=== PATIENT | male | born 1980 | race Caucasian/White ===

== ENCOUNTER 2024-12-27 14:35 | Outpatient (AMB) | payer OTHER, SELFPAY ==
--- NOTE | 2024-12-27 14:45 | MHC.PC.OV ---
Vital Signs 12/27/24 15:12 Height 5 ft 6 in Weight 198 lb 4 oz BMI 32.0 BP 104/67 Blood Pressure Location Lt brachial Position Sitting Respiration 16 Pulse 71 Pulse Source Pulse Oximeter Temp 97.8 F Temp Source Oral Pulse Oximetry (%) 100 Oxygen Delivery Method Room Air Intake Visit Reasons: CPE Intake Note: patient here for new patient visit Medical Collections Required: No Allergies No Known Allergies Allergy (Verified 12/27/24 15:23) Medication List - Last Reconciled 12/27/24 by Carlito Medina CNP No Known Home Meds Tobacco use date assessed: 12/27/24 Dental Screening Dental Screen Date: 12/27/24 Did you have a dental visit in the last 12 months?: Yes Did you have a dental problem in the last 6 months where you did not have access to dental care?: No Was dental information given to patient?: Patient has dentist HPI HPI Comments History of Present Illness Details 44-year-old male presents to [facility]. He is not on prescription medication. Prior PCP? - Dr. Rene Hewitt Last office visit/CPE/labs - Over 10 years Acute issue(s) - None Past Medical History - Myopia, testicular torsion Surgical History - Ear tubes placement Family History - Dad: Cardiovascular disease, hyperlipidemia, lung cancer - Mom: Thyroid disorder - PGF: Alcohol abuse - MGM: Cardiovascular disease, diabetes Social History - Former smoker, smoked at least 1ppd x 16 years, quit about 10 years ago. Does not drink alcohol, h/o excessive alcohol drinking 15 years ago, Vapes cannabis daily and smoke a joint occasionally - Generally makes unhealthy dietary choices. Active but does not exercise. Generally sleep well Health maintenance - Last eye exam was 3-4 years ago. Referred to ophthalmology for an eye exam - Last dental visit was in 04/2024 - Last tetanus vaccine was more than 10 years ago; received Tdap vaccine today - Has not been vaccinated for the flu this season; declines vaccination Specialists - None PFSH Medical History (Updated 12/27/24 @ 15:44 by Carlito Medina CNP) Testicular torsion Surgical History (Updated 12/27/24 @ 15:18 by Rona Bullock MA) History of placement of ear tubes Family History (Updated 12/27/24 @ 15:17 by Rona Bullock MA) Paternal Grandfather Alcohol abuse Sister Alcohol abuse Cancer Father High cholesterol Cardiovascular disease Cancer Maternal Grandmother Diabetes Cardiovascular disease Mother Thyroid disorder Social History (Updated 12/27/24 @ 15:12 by Rona Bullock MA) Housing: House Patient Tobacco Use Status: Never used Tobacco e-Cigarette/Vaping Use: Never Used Second Hand Smoke Exposure: No Substance Use Type: Marijuana service: No Current occupational status: employed Current occupation: HVAC Current occupational exposures/hazards: No Cognitive needs: No Hearing needs: No Vision needs: Yes Questionnaire PHQ-9 Over the last 2 weeks, how often have you been bothered by any of the following problems? 1. Little interest or pleasure in doing things: not at all 2. Feeling down, depressed, or hopeless: not at all 3. Trouble falling or staying asleep, or sleeping too much: not at all 4. Feeling tired or having little energy: not at all 5. Poor appetite or overeating: not at all 6. Feeling bad about yourself - or that you are a failure or have let yourself or your family down: several days 7. Trouble concentrating on things, such as reading the newspaper or watching television: not at all 8. Moving or speaking so slowly that other people could have noticed. Or the opposite - being so fidgety or restless that you have been moving around a lot more than usual: not at all 9. Thoughts that you would be better off or of hurting yourself in some way: not at all Total score: 1 Depression Screening Interpretation: Negative Depression Screening Done: Yes 21037 - PHQ-9 Billing: Yes Source: Developed by Drs. Rene Castrejon, Mary Mckeon, Malvin Schafer and colleagues, with an educational justyn from [employer]. Thrive Questionnaire Date Thrive assessed: 12/27/24 I am a: Patient What is your living situation today?: I have a steady place to live Within the past 12 months, did the food you bought not last and you didn't have the money to get more?: Never true Within the past 12 months, did you worry whether your food would run out before you got money to buy more?: Never true Do you have trouble paying for medicines?: No Do you have trouble getting transportation to medical appointments?: No Do you have trouble paying your heating and electricity bill?: No Do you have trouble taking care of your child, family member or friend?: No Do you have trouble with day-to-day activities such as bathing, preparing meals, shopping, managing finances, etc.?: No Are you currently unemployed and looking for a job?: No Are you interested in more education?: Yes Please select the resources that you would like help with: None Currently or been in a relationship where the following occur: No concerns reported THRIVE Score: 0 AUDIT C Alcohol Use Questionnaire (AUDIT-C) 1. How often do you have a drink containing alcohol?: Never 3. How often do you have six or more drinks on one occasion?: Never Total Score: 0 Score Reviewed/Action Taken: Yes FABRICE-7 AMB Questionnaire FABRICE-7 Date FABRICE - 7 assessed: 12/27/24 Feeling nervous, anxious, or on edge: 1 = Several days Not being able to stop or control worryin = Not at all Worrying too much about different things: 1 = Several days Trouble relaxin = Not at all Being so restless that it is hard to sit still: 0 = Not at all Becoming easily annoyed or irritable: 1 = Several days Feeling afraid as if something awful might happen: 0 = Not at all Total FABRICE-7 score (0-4 normal; 5-9 mild; 10-14 moderate; 15-21 severe): 3 Source: Developed by Drs. Rene Castrejon, Mary Mckeon, Malvin Schafer and colleagues, with an educational justyn from [employer]. FABRICE-7 Assessment Billing FABRICE-7 Assessment Tool: FABRICE-7 Assessment 26700 Review of Systems Const Details: Denies chills, Denies fatigue, Denies fever(s), Denies headache(s) and Denies weakness HEENT Denies change in vision, Denies dizziness, Denies headache(s), Denies hearing loss, Denies nasal congestion, Denies sinus pain, Denies sinus pressure and Denies sore throat Card Denies chest pain, Denies lightheadedness, Denies dyspnea and Denies other (palpitations) Resp Denies cough, Denies dyspnea and Denies wheezing GI Denies abdominal pain, Denies melena, Denies hematochezia, Denies change in bowel habits, Denies dyspepsia and Denies nausea Denies hematuria and Denies dysuria Musc Denies abnormal gait, Denies myalgias, Denies arthralgias, Denies numbness and Denies tingling Skin/Breast Denies rash, Denies unusual bruising and Denies wounds Neuro Denies abnormal gait, Denies dizziness, Denies headache(s), Denies memory loss, Denies numbness, Denies Sensory deficit (Neuro), Denies tingling and Denies weakness Psych Denies anxiety, Denies depression and Denies memory loss Endo Denies cold intolerance, Denies fatigue, Denies heat intolerance, Denies polydipsia and Denies polyuria Yosef/Lymph Denies easy bleeding and Denies easy bruising Aller/Immun Denies wheezing Physical exam (Primary Care) Vital Signs: Last Vital Signs Temp 97.8 F 12/27/24 15:12 Pulse 71 12/27/24 15:12 Resp 16 12/27/24 15:12 BP 104/67 12/27/24 15:12 Pulse Ox 100 12/27/24 15:12 Oxygen Delivery Method Room Air 12/27/24 15:12 BMI result Body Mass Index 32.0 Tobacco/Smoking Status: Tobacco use Status Tobacco use date assessed 12/27/24 12/27/24 15:12 Patient Tobacco Use Status Never used Tobacco 12/27/24 15:12 e-Cigarette/Vaping Use Never Used 12/27/24 15:12 PHQ-9: PHQ-9 Score PHQ-9: Total score 1 12/27/24 15:49 Depression Screening Interpretation: Negative Thrive Assessment: Date of Thrive Assessment Date Thrive assessed 12/27/24 12/27/24 15:09 Currently or been in a relationship where the following occur: No concerns reported Const Other: General: no acute distress, well developed, alert and awake Nutritional Appearance: well nourished Orientation/consciousness: patient oriented x3 HENMT Head: Yes normocephalic and Yes atraumatic Ears: hearing grossly normal bilaterally and TM's normal bilaterally General nose exam: Normal external nose present and Normal nares present Mouth: Normal oral and palatal mucosa present and moist mucous membranes Teeth and gingiva: dentition normal Throat: Yes oropharynx normal Eyes Pupils: Equal, round and reactive pupils present and Pupil accommodation reflex normal EOM: EOMs intact bilaterally Neck Neck: Yes normal visual inspection, Yes no lymphadenopathy and Yes trachea midline Thyroid: Thyroid normal Carotids: no bruits Lymphatic: no lymphadenopathy noted Chest Chest palpation & inspection: normal inspection of the chest Resp Effort & Inspection: normal respiratory effort Auscultation: clear to auscultation bilaterally Cardio Rate: regular rate Rhythm: regular rhythm Heart sounds: S1 normal heart sound present, S2 normal heart sound present, no gallops, no murmurs and no rubs Bruits: no abdominal aortic bruits and no carotid bruits GI Palpation (GI): No Abdominal aortic bruit present, Soft to palpation, nontender, No hepatosplenomegaly present and No Rebound tenderness present Auscultation: normal bowel sounds General: Yes no CVA tenderness Back/Spine/Pelvis Back: no CVA tenderness Cervical Spine: cervical ROM normal and No Cervical spine tenderness Thoracic/Lumbar Spine: thoraco-lumbar ROM normal, No pain with thoraco-lumbar ROM, No thoracic spinal tenderness and No lumbar spinal tenderness Skin General: warm and dry. Normal skin color. Normal skin turgor Lesions: no lesions Rashes: no rashes Trauma: no lacerations or abrasions Wounds: no wounds Nails: normal Neuro General: patient oriented x3, gait normal and CN's II-XI intact bilaterally Cranial nerves: Yes Equal, round and reactive pupils present Cognition (Neuro): normal cognition Gait exam (Neuro): Normal gait present Motor exam (neuro): 5/5 motor strength present throughout Sensory Exam: No Sensory deficit (Neuro) Deep tendon reflexes (DTR's): Right patellar reflex intensity grade: 2+ and Left patellar reflex intensity grade: 2+ Extrem General: Yes normal to inspection, No edema and No calf tenderness Psych Appearance: grossly normal Affect: normal affect Attitude: cooperative Thought process: Normal thought process present Immunizations Boostrix Tdap 2.5 Lf unit-8 mcg-5 Lf/0.5 mL intramuscular syringe Performing Provider: Carlito Medina CNP [place] [facility] [place] [facility] Administered by: Renato Jose RN on 12/27/24 15:48 Dose Route Admin Location Dispensed Lot Number Expiration Date [facility] Systems Mgr 0.5 mL IM Left Deltoid 0.5 mL [id number] 01/20/27 [id number] [employer] Total Dispensed Waste 0.5 mL 0 % VIS Given Date VIS Provided VIS Publication Date 12/27/24 Single Vaccine 20 Eligibility Eligibility Date Funding Source Not [facility] Eligible 12/27/24 Private Coding Level of Care Code New Pt Level 3 (44149) New Pt Prev Care 18-39yr(40286 Diagnoses Normal physical examination, routine Z00.00 Eye exam, routine Z01.00 Engages in vaping Z72.89 Obesity (BMI 30-39.9) E66.9 Laboratory tests ordered as part of a complete physical exam (CPE) Z00.00 Additional Codes FABRICE-7 Assessment Billing - FABRICE-7 Assessment Tool: FABRICE-7 Assessment 47309 ([id number]) PHQ-9 - 20048 - PHQ-9 Billing: Yes ([id number]) Assessment & Plan Assessment & Plan (1) Normal physical examination, routine: Code(s): Z00.00 - Encounter for general adult medical examination without abnormal findings Category: Medical Plan: No significant functional limitation noted. Healthy diet and routine exercise encouraged. Perform lab work and follow-up for telehealth visit for labs review in 2-4 weeks. Return sooner with symptoms or concerns. Verbalized understanding and agreed with the plan. (2) Eye exam, routine: Code(s): Z01.00 - Encounter for examination of eyes and vision without abnormal findings Category: Medical Plan: Last eye exam was 3-4 years ago. Referred to ophthalmology for an eye exam. (3) Engages in vaping: Code(s): Z72.89 - Other problems related to lifestyle Category: Medical Plan: He vapes cannabis daily. Instructed on the health risks and complications of vaping and cessation encouraged. Verbalized understanding and agreed with the plan. (4) Obesity (BMI 30-39.9): Code(s): E66.9 - Obesity, unspecified Category: Medical Plan: He currently weighs 198 lb, BMI is 32.0. He generally makes unhealthy dietary choices. He is active and does not exercise. Declines referral to drill operator/dietitian or weight management clinic at this time and notes he will start making healthy lifestyle changes. Healthy diet and routine exercise encouraged. Follow-up as needed. Verbalized understanding and agreed with the plan. (5) Laboratory tests ordered as part of a complete physical exam (CPE): Code(s): Z00.00 - Encounter for general adult medical examination without abnormal findings Category: Medical Plan: Fasting labs ordered as part of a complete physical exam. Advised to fast for at least 10 hours before getting labs drawn. May drink water Verbalized understanding and agreed with treatment plan. Orders: Orders Complete Blood Count Auto Diff Today Z00.00 - Encounter for general adult medical examination without abnormal findings Lipid Panel Today Z00.00 - Encounter for general adult medical examination without abnormal findings PSA, Ultra Sensitive Today Z00.00 - Encounter for general adult medical examination without abnormal findings TSH reflex Free T4 Today Z00.00 - Encounter for general adult medical examination without abnormal findings Comprehensive [place]. Panel Fast Today Z00.00 - Encounter for general adult medical examination without abnormal findings Microalbumin, Random (w Creat) Today Z00.00 - Encounter for general adult medical examination without abnormal findings UA CC w/rflx Micro + Cult Today Z00.00 - Encounter for general adult medical examination without abnormal findings Vitamin D 25-OH Total Today Z00.00 - Encounter for general adult medical examination without abnormal findings TDaP Immunization Today Z23 - Encounter for immunization
[2024-12-27 15:12] VITALS: BP 104/67; PULSE 71; RESP 16; TEMP 36.6; O2SAT 100; BMI 32.0
--- OUTSIDE RECORDS SUMMARY | 2024-12-27 15:57 | XMS_ITS | Patient Health Record ---
Author Organization [facility] Address [address] [place] [id number] Care Team Providers Care Inflatable Buildings Laminator Name Role Phone Rene Johnston Unavailable [phone] Reason For Referral No Information Plan Of Treatment No Information
== END 2024-12-27 15:47 | disposition home or self-care (01) ==
LOC: HO.HMCFM 14:36
PROVIDERS: PCP Nurse Practitioner Family; Visit Provider Nurse Practitioner Family
DX: Z00.00 Encounter for general adult medical examination without abnormal findings (principal); E66.9 Obesity, unspecified; Z68.32 Body mass index [BMI] 32.0-32.9, adult; Z72.89 Other problems related to lifestyle; Z23 Encounter for immunization

== ENCOUNTER → 2024-12-27 14:35 | Outpatient (BNVA) | payer OTHER, SELFPAY | PROVIDERS: PCP Nurse Practitioner Family; Visit Provider Nurse Practitioner Family | DX: Z00.00 Encounter for general adult medical examination without abnormal findings (principal); E66.9 Obesity, unspecified; Z68.32 Body mass index [BMI] 32.0-32.9, adult; Z23 Encounter for immunization; Z72.89 Other problems related to lifestyle | CPT/HCPCS: 90471; 90715; 96127 ==

== ENCOUNTER 2024-12-28 10:57 | Outpatient (AMB) | payer OTHER, SELFPAY ==
[2024-12-28 11:22] VITALS: BP 102/78; PULSE 70; TEMP 36.8; O2SAT 97; BMI 32.0
--- NOTE | 2024-12-28 11:22 | MHC.OFFWIV ---
Intake Vital Signs 12/28/24 11:22 Height 5 ft 6 in Weight 198 lb BMI 32.0 BP 102/78 Blood Pressure Location Rt brachial Position Sitting Pulse 70 Pulse Source Pulse Oximeter Temp 98.3 F Temp Source Oral Pulse Oximetry (%) 97 Oxygen Delivery Method Room Air Intake Visit Reasons: EP-rt ear wax Intake Note: pt presents with RT ear wax buildup with loss of hearing Patient Tobacco Use Status: Never used Tobacco Allergies No Known Allergies Allergy (Verified 12/28/24 11:22) Do you need a note to return to daycare/school/sports/work: No HPI HPI Comments History of Present Illness Details History - The patient is a 44-year-old male presenting with hearing loss due to impacted cerumen in the right ear. - The issue began after attempting to clean ear wax at home following a primary care visit yesterday. - The patient used Q-tips and a metal ear cleaning kit, which led to irritation and minor bleeding. - The patient reports no pain but experiences awkwardness and difficulty hearing, affecting communication at work. - Debrox was used unsuccessfully to dissolve the wax, requiring professional intervention. Physical Exam General: Cooperative, healthy appearing, comfortable, no acute distress and well developed Orientation: Patient oriented x3 Limitations: No limitations Head: Normal to inspection Ears: Right ear with impacted cerumen and some blood present, left ear TM and EAC normal Face and sinus: Normal facial exam Neck: Normal visual inspection and Yes full ROM Respiratory: Normal respiratory effort and able to speak in complete sentences. Skin: No rashes or lesions noted Neuro: Patient oriented x3 Extremities: normal to inspection Review of Systems - Ears: Reports hearing loss in the right ear, denies pain All systems reviewed and are unremarkable except as noted in HPI [facility] Medical History (Updated 12/28/24 @ 11:45 by Brittany Andre PA-C) Testicular torsion Surgical History (Updated 12/27/24 @ 15:18 by Rona Bullock MA) History of placement of ear tubes Family History (Updated 12/27/24 @ 15:17 by Rona Bullock MA) Paternal Grandfather Alcohol abuse Sister Alcohol abuse Cancer Father High cholesterol Cardiovascular disease Cancer Maternal Grandmother Diabetes Cardiovascular disease Mother Thyroid disorder Social History (Updated 12/27/24 @ 15:12 by Rona Bullock MA) Housing: House Patient Tobacco Use Status: Never used Tobacco e-Cigarette/Vaping Use: Never Used Second Hand Smoke Exposure: No Substance Use Type: Marijuana service: No Current occupational status: employed Current occupation: HVAC Current occupational exposures/hazards: No Cognitive needs: No Hearing needs: No Vision needs: Yes Physical Exam Vital Signs: Last Vital Signs Temp 98.3 F 12/28/24 11:22 Pulse 70 12/28/24 11:22 BP 102/78 12/28/24 11:22 Pulse Ox 97 12/28/24 11:22 Oxygen Delivery Method Room Air 12/28/24 11:22 BMI result Body Mass Index 32.0 Assessment & Plan Assessment & Plan (1) Impacted cerumen of right ear: Code(s): H61.21 - Impacted cerumen, right ear Plan: Plan - Plan to flush the right ear to remove impacted cerumen and alleviate hearing loss. - Recommend using Deprox weekly to prevent future cerumen buildup. - S/p ear flush, EAC clear, sides of canal are coated in blood, no infection or deep lac noted, TM normal on right side. - Advised EAC will heal, if becomes painful, pls message us, we can send drops for OE but not infected currently. Patient was informed and verbally consented to the use of an ambient scribe for clinic note documentation during this visit. Orders: Orders AMB Cerumen Removal Today H61.21 - Impacted cerumen, right ear Coding Level of Care Code Est Pt Level 3 (05150) Diagnoses Impacted cerumen of right ear H61.21
--- OUTSIDE RECORDS SUMMARY | 2024-12-28 12:30 | XMS_ITS | Patient Health Record ---
Author Organization [facility] Address [address] [place] [id number] Care Team Providers Care Bilingual Account Manager Name Role Phone Rene Johnston Unavailable [phone] Reason For Referral No Information Plan Of Treatment No Information
== END 2024-12-28 11:59 | disposition home or self-care (01) ==
PROVIDERS: PCP Nurse Practitioner Family; Visit Provider Physician Assistant
DX: H61.21 Impacted cerumen, right ear (principal)

== ENCOUNTER 2024-12-29 05:59 | Outpatient (REF) | payer OTHER, SELFPAY ==
--- OUTSIDE RECORDS SUMMARY | 2024-12-29 06:02 | XMS_ITS | Patient Health Record ---
Author Organization [facility] Address [address] [place] [id number] Care Team Providers Care Coordinator Integrated Marketing Name Role Phone Rene Johnston Unavailable [phone] Reason For Referral No Information Plan Of Treatment No Information
[2024-12-29 06:16] LABS: MANUAL DIFF FLAG NO
[2024-12-29 07:23] LABS: Hematocrit 44.0 % (42.0-52.0); Hemoglobin 15.0 g/dl (14.0-18.0); Imm Gran Abs Auto 0.01 X10*3/uL (0.00-0.03); Imm Gran Pct Auto 0.2 % (0.0-0.4); Lymphocytes Absolute Auto 1.7 X10*3/uL (1.2-4.9); Mean Corpuscular HGB Conc 34.1 g/dl (31.0-36.0); Mean Corpuscular Hemoglobin 29.2 pg (27.0-33.0); Mean Corpuscular Volume 85.6 fL (80.0-98.0); NRBC Abs Auto 0.000 X10*3/uL (0.0-0.012); NRBC Pct Auto 0.0 /100WBC (0.0-0.2); Platelet Count 251 X10*3/uL (160-400); Red Blood Count 5.14 X10*6/uL (4.60-5.80); White Blood Count 6.4 X10*3/uL (4.8-10.8)
[2024-12-29 07:33] LABS: Appearance Urine Clear; Glucose Urine UA Negative (Negative); PH 6.5 (5.0-9.0); Specific Gravity - Urine 1.025 (1.005-1.025)
[2024-12-29 07:56] LABS: Alanine Aminotransferase 44 U/L (0-40); Albumin Level 4.7 g/dL (3.5-5.0); Alkaline Phosphatase 69 U/L (39-117); Anion Gap 12 (12-20); Aspartate Amino Transferase 40 U/L (5-37); Blood Urea Nitrogen 14 mg/dL (9-16); Calcium 9.6 mg/dL (8.4-10.2); Carbon Dioxide 25 mmol/L (22-29); Chloride 109 mmol/L (96-108); Cholesterol 292 mg/dL (<200); Estimated Glomerular Filt Rate > 60; HDL Cholesterol 48 mg/dL (>40); Potassium 4.5 mmol/L (3.3-5.1); Sodium 141 mmol/L (135-145); Total Protein 7.5 g/dL (6.5-8.0); Triglycerides 100 mg/dL (<150)
[2024-12-29 08:20] LABS: Microalbum/Creatinine Ratio Ur 2.4 ug/mg cr (<30)
[2025-01-02 13:04] LABS: PSA, Ultra Sensitive 0.89 ng/mL
== END 2024-12-29 06:00 | disposition home or self-care (01) ==
LOC: HO.LAB 05:59
PROVIDERS: PCP Nurse Practitioner Family; Visit Provider Nurse Practitioner Family
DX: Z00.00 Encounter for general adult medical examination without abnormal findings (principal); Z12.5 Encounter for screening for malignant neoplasm of prostate; Z13.21 Encounter for screening for nutritional disorder; Z13.29 Encounter for screening for other suspected endocrine disorder; Z13.6 Encounter for screening for cardiovascular disorders
CPT/HCPCS: 36415; 80053; 80061; 81003; 82043; 82306; 82570; 84153; 84443; 85025

== ENCOUNTER 2025-01-13 12:44 | Outpatient (AMB) | payer OTHER, SELFPAY ==
--- NOTE | 2025-01-13 12:16 | A.OFFPC_ITS ---
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 Reports history of consuming significant amount of red meat, cheese, and ice cream; however, after reviewing his recent lipid panel level, he started making healthy dietary choices. He has been exercising regularly. Denies drinking alcohol. No acute symptoms at this time. [facility] Medical History (Updated 01/13/25 @ 12:18 by Carlito Medina CNP) Testicular torsion Surgical History (Updated 12/27/24 @ 15:18 by VINAY Louise) History of placement of ear tubes Family History (Updated 12/27/24 @ 15:17 by VINAY Louise) Paternal Grandfather Alcohol abuse Sister Alcohol abuse Cancer Father High cholesterol Cardiovascular disease Cancer Maternal Grandmother Diabetes Cardiovascular disease Mother Thyroid disorder Social History (Updated 12/27/24 @ 15:12 by VINAY Louise) Housing: House Patient Tobacco Use Status: Never used Tobacco e-Cigarette/Vaping Use: Never Used Second Hand Smoke Exposure: No Substance Use Type: Marijuana service: No Current occupational status: employed Current occupation: HVAC Current occupational exposures/hazards: No Cognitive needs: No Hearing needs: No Vision needs: Yes Questionnaire Thrive Questionnaire Date Thrive assessed: 12/20/24 I am a: Patient What is your living situation today?: I have a steady place to live Within the past 12 months, did the food you bought not last and you didn't have the money to get more?: Never true Within the past 12 months, did you worry whether your food would run out before you got money to buy more?: Never true Do you have trouble paying for medicines?: No Do you have trouble getting transportation to medical appointments?: No Do you have trouble paying your heating and electricity bill?: No Do you have trouble taking care of your child, family member or friend?: No Do you have trouble with day-to-day activities such as bathing, preparing meals, shopping, managing finances, etc.?: No Are you currently unemployed and looking for a job?: No Are you interested in more education?: Yes Please select the resources that you would like help with: None Currently or been in a relationship where the following occur: No concerns reported THRIVE Score: 0 FABRICE-7 AMB Questionnaire FABRICE-7 Date FABRICE - 7 assessed: 12/27/24 Source: Developed by Drs. Rene Castrejon, Mary Mckeon, Malvin Schafer and colleagues, with an educational justyn from [employer]. Review of Systems Const Details: Denies chills, Denies fatigue, Denies fever(s), Denies headache(s) and Denies weakness Cardiac Denies chest pain, Denies claudication, Denies leg edema, Denies lighthea dedness, Denies palpitations, Denies dyspnea, Denies dyspnea on exertion, Denies orthopnea and Denies other (Loss of consciousness) Resp Denies cough, Denies excessive phlegm production, Denies dyspnea, Denies dyspnea on exertion, Denies snoring and Denies wheezing Physical exam (Primary Care) Tobacco/Smoking Status: Tobacco use Status Tobacco use date assessed 12/27/24 01/13/25 12:19 Patient Tobacco Use Status Never used Tobacco 01/13/25 12:19 e-Cigarette/Vaping Use Never Used 01/13/25 12:19 Thrive Assessment: Date of Thrive Assessment Date Thrive assessed 12/20/24 01/13/25 12:19 Currently or been in a relationship where the following occur: No concerns reported Const Other: Patient is alert and oriented x3 Telehealth Telehealth Telehealth Platform: Telephone Location of provider rendering services: practice address Location of patient: address on file Patient Identification confirmed using: Name, : Yes Telehealth method: voice only Patient verbally consented to treatment: Yes Patient verbally consented to billing insurance company: Yes Patient informed of any privacy concerns related to visit: Yes Coding Level of Care Code Tele Est Pt Level 3 (79668) Diagnoses Elevated fasting glucose R73.01 Hypercholesterolemia E78.00 Transaminitis R74.01 Hyperbilirubinemia E80.6 Time Spent (min) 15 Assessment & Plan Assessment & Plan (1) Elevated fasting glucose: Code(s): R73.01 - Impaired fasting glucose Category: Medical Plan: Recent fasting glucose is slightly elevated, 104. Healthy diet and routine exercise encouraged. Will recheck fasting glucose and make changes as needed. Verbalized understanding and agreed with the plan. (2) Hypercholesterolemia: Code(s): E78.00 - Pure hypercholesterolemia, unspecified Category: Medical Plan: Recent total cholesterol and LDL levels are elevated, 292 and 224 respectively, triglycerides and HDL levels are normal. He has history of consuming significant amount of red meat, cheese, and ice cream. Advised to limit foods high in saturated fat and avoid foods high in trans fat. Routine exercise encouraged. Fast for 10-12 hours, may drink water, and perform lipid panel blood work few days before next visit. Follow-up for telehealth visit in 2 months. Return sooner with symptoms or concerns. Verbalized understanding and agreed with the plan. (3) Transaminitis: Code(s): R74.01 - Elevation of levels of liver transaminase levels Category: Medical Plan: Recent AST and ALT level is slightly elevated, 40 and 44 respectively, bilirubin level is slightly elevated, 1.1. Healthy diet/weight management encouraged. Will recheck liver panel in 2 months. Verbalized understanding and agreed with the plan. (4) Hyperbilirubinemia: Code(s): E80.6 - Other disorders of bilirubin metabolism Category: Medical Plan: Plan as above. Orders: Orders Lipid Panel 2 Months E78.00 - Pure hypercholesterolemia, unspecified Glucose Fasting Today R73.01 - Impaired fasting glucose Liver Panel 2 Months E80.6 - Other disorders of bilirubin metabolism, R74.01 - Elevation of levels of liver transaminase levels
== END 2025-01-13 15:37 | disposition home or self-care (01) ==
LOC: HO.HMCFM 12:44
PROVIDERS: PCP Nurse Practitioner Family; Visit Provider Nurse Practitioner Family
DX: R73.01 Impaired fasting glucose (principal); E78.00 Pure hypercholesterolemia, unspecified; R74.01 Elevation of levels of liver transaminase levels; E80.6 Other disorders of bilirubin metabolism

== ENCOUNTER 2025-03-07 06:17 | Outpatient (REF) | payer OTHER, SELFPAY ==
--- OUTSIDE RECORDS SUMMARY | 2025-03-07 06:21 | XMS_ITS | Patient Health Record ---
Author Organization [facility] Address [address] [place] [id number] Care Team Providers Care Sales And Marketing Director Name Role Phone Rene Johnston Unavailable [phone] Reason For Referral No Information Plan Of Treatment No Information
[2025-03-07 07:51] LABS: Alanine Aminotransferase 31 U/L (0-40); Albumin Level 4.7 g/dL (3.5-5.0); Alkaline Phosphatase 64 U/L (39-117); Aspartate Amino Transferase 28 U/L (5-37); Cholesterol 256 mg/dL (<200); HDL Cholesterol 45 mg/dL (>40); Total Protein 7.2 g/dL (6.5-8.0); Triglycerides 113 mg/dL (<150)
== END 2025-03-07 06:18 | disposition home or self-care (01) ==
LOC: HO.LAB 06:17
PROVIDERS: PCP Nurse Practitioner Family; Visit Provider Nurse Practitioner Family
DX: R74.01 Elevation of levels of liver transaminase levels (principal); E78.00 Pure hypercholesterolemia, unspecified; E80.6 Other disorders of bilirubin metabolism
CPT/HCPCS: 36415; 80061; 80076

== ENCOUNTER 2025-03-13 13:52 | Outpatient (AMB) | payer OTHER, SELFPAY ==
[2025-03-13 14:02] VITALS: BP 100/66; PULSE 91; O2SAT 98; BMI 29.1
--- NOTE | 2025-03-13 14:02 | MHC.PC.OV ---
Vital Signs 03/13/25 14:02 Height 5 ft 6 in Weight 180 lb 2 oz BMI 29.1 BP 100/66 Blood Pressure Location Lt brachial Position Sitting Pulse 91 Pulse Source Pulse Oximeter Pulse Oximetry (%) 98 Oxygen Delivery Method Room Air Intake Visit Reasons: 2 mos elevated FBS, transaminitis, hyperbilir Allergies No Known Allergies Allergy (Verified 03/13/25 14:04) Tobacco use date assessed: 03/13/25 Dental Screening Dental Screen Date: 03/13/25 Did you have a dental visit in the last 12 months?: Yes Did you have a dental problem in the last 6 months where you did not have access to dental care?: No Was dental information given to patient?: Patient has dentist HPI 2 mos elevated FBS, transaminitis, hyperbilir HPI Details 44 y/o male presents to f/u lipids, labs. Labs drawn 03/07/25. Reviewed labs with pt. Triglycerides 113. TC 256. LDL 189. HDL 45. Total bilirubin 1.2 mg/dL. Liver enzymes improved to normal range. Hx of elevated fasting glucose. A1c today 03/13/25 is 5.0%. [facility] Medical History Testicular torsion Surgical History History of placement of ear tubes Family History Paternal Grandfather Alcohol abuse Sister Alcohol abuse Cancer Father High cholesterol Cardiovascular disease Cancer Maternal Grandmother Diabetes Cardiovascular disease Mother Thyroid disorder Social History Housing: House Patient Tobacco Use Status: Never used Tobacco e-Cigarette/Vaping Use: Never Used Second Hand Smoke Exposure: No Substance Use Type: Marijuana service: No Current occupational status: employed Current occupation: HVAC Current occupational exposures/hazards: No Cognitive needs: No Hearing needs: No Vision needs: Yes Questionnaire PHQ-9 Over the last 2 weeks, how often have you been bothered by any of the following problems? 1. Little interest or pleasure in doing things: not at all 2. Feeling down, depressed, or hopeless: not at all 3. Trouble falling or staying asleep, or sleeping too much: not at all 4. Feeling tired or having little energy: not at all 5. Poor appetite or overeating: not at all 6. Feeling bad about yourself - or that you are a failure or have let yourself or your family down: several days 7. Trouble concentrating on things, such as reading the newspaper or watching television: not at all 8. Moving or speaking so slowly that other people could have noticed. Or the opposite - being so fidgety or restless that you have been moving around a lot more than usual: not at all 9. Thoughts that you would be better off or of hurting yourself in some way: not at all Total score: 1 Depression Screening Interpretation: Negative Depression Screening Done: Yes Source: Developed by Drs. Rene Castrejon, Mary Mckeon, Malvin Schafer and colleagues, with an educational justyn from [employer]. Thrive Questionnaire Date Thrive assessed: 12/20/24 I am a: Patient What is your living situation today?: I have a steady place to live Within the past 12 months, did the food you bought not last and you didn't have the money to get more?: Never true Within the past 12 months, did you worry whether your food would run out before you got money to buy more?: Never true Do you have trouble paying for medicines?: No Do you have trouble getting transportation to medical appointments?: No Do you have trouble paying your heating and electricity bill?: No Do you have trouble taking care of your child, family member or friend?: No Do you have trouble with day-to-day activities such as bathing, preparing meals, shopping, managing finances, etc.?: No Are you currently unemployed and looking for a job?: No Are you interested in more education?: Yes Please select the resources that you would like help with: None Currently or been in a relationship where the following occur: No concerns reported THRIVE Score: 0 AUDIT C Alcohol Use Questionnaire (AUDIT-C) 1. How often do you have a drink containing alcohol?: Never 3. How often do you have six or more drinks on one occasion?: Never Total Score: 0 FABRICE-7 AMB Questionnaire FABRICE-7 Date FABRICE - 7 assessed: 12/27/24 Feeling nervous, anxious, or on edge: 1 = Several days Not being able to stop or control worryin = Not at all Worrying too much about different things: 1 = Several days Trouble relaxin = Not at all Being so restless that it is hard to sit still: 0 = Not at all Becoming easily annoyed or irritable: 1 = Several days Feeling afraid as if something awful might happen: 0 = Not at all Total FABRICE-7 score (0-4 normal; 5-9 mild; 10-14 moderate; 15-21 severe): 3 Source: Developed by Drs. Rene Castrejon, Mary Mckeon, Malvin Schafer and colleagues, with an educational justyn from [employer]. Review of Systems Const Denies chills, Denies fatigue, Denies fever(s), Denies headache(s) and Denies weakness ENT Denies dizziness and Denies headache(s) Card Denies dyspnea Resp Denies cough, Denies dyspnea, Denies wheezing and Denies other (shortness of breath) Musc Denies numbness and Denies tingling Neuro Denies dizziness, Denies headache(s), Denies numbness, Denies tingling and Denies weakness Psych Denies anxiety and Denies depression Endo Denies fatigue Aller/Immun Denies wheezing Physical exam (Primary Care) Vital Signs: Last Vital Signs Pulse 91 03/13/25 14:02 BP 100/66 03/13/25 14:02 Pulse Ox 98 03/13/25 14:02 Oxygen Delivery Method Room Air 03/13/25 14:02 BMI result Body Mass Index 29.1 Tobacco/Smoking Status: Tobacco use Status Tobacco use date assessed 03/13/25 03/13/25 14:05 Patient Tobacco Use Status Never used Tobacco 03/13/25 14:05 e-Cigarette/Vaping Use Never Used 03/13/25 14:05 PHQ-9: PHQ-9 Score PHQ-9: Total score 1 03/13/25 14:25 Depression Screening Interpretation: Negative Thrive Assessment: Date of Thrive Assessment Date Thrive assessed 12/20/24 03/13/25 14:05 Currently or been in a relationship where the following occur: No concerns reported Const General: well developed; No acute distress Nutritional Appearance: well nourished Orientation/consciousness: patient oriented x3 HENMT Head: Yes normocephalic and Yes atraumatic Eyes General: appearance normal, both eyes and all related structures Pupils: Equal, round and reactive pupils present EOM: EOMs intact bilaterally Resp Effort & Inspection: normal respiratory effort Auscultation: clear to auscultation bilaterally Cardio Rate: regular rate Rhythm: regular rhythm Heart sounds: S1 normal heart sound present, S2 normal heart sound present, no gallops, no murmurs and no rubs Neuro General: patient oriented x3 and gait normal Cranial nerves: Yes Equal, round and reactive pupils present Psych Affect: normal affect Results AMB Hemoglobin A1c AMB Hemoglobin A1c 5.0 % Last Edit by Danitza Melendez CMA on 03/13/25 14:29 Results Reviewed Results Reviewed: Laboratory Last Values Hgb A1c (Clinic) 5.0 % (4.0-6.0) 03/13/25 14:25 Coding Level of Care Code Est Pt Level 4 (44595) Diagnoses Hypercholesterolemia E78.00 Elevated fasting glucose R73.01 Transaminitis R74.01 Hyperbilirubinemia E80.6 Assessment & Plan Assessment & Plan (1) Hypercholesterolemia: Code(s): E78.00 - Pure hypercholesterolemia, unspecified Category: Medical Plan: Patient was working on LDL cholesterol and has brought it down quite a bit but still very high at 189 Start atorvastatin. Will recheck lipids at next visit and adjust medication. He will call for any problems with this medication (2) Elevated fasting glucose: Code(s): R73.01 - Impaired fasting glucose Category: Medical Plan: A1c 5.0 is in normal range. May have some insulin resistance Encouraged a diet low in sugars and starches Encouraged weight loss (3) Transaminitis: Code(s): R74.01 - Elevation of levels of liver transaminase levels Category: Medical Plan: Liver enzymes are now back in normal range Encouraged weight loss and increased hydration (4) Hyperbilirubinemia: Code(s): E80.6 - Other disorders of bilirubin metabolism Category: Medical Plan: Mildly elevated No intervention required at this time. Will continue to monitor Orders: Orders AMB Hemoglobin A1c Today Z13.9 - Encounter for screening, unspecified Lipid Panel Today E78.00 - Pure hypercholesterolemia, unspecified, Z00.00 - Encounter for general adult medical examination without abnormal findings Comprehensive [place]. Panel Fast Today E78.00 - Pure hypercholesterolemia, unspecified, Z00.00 - Encounter for general adult medical examination without abnormal findings Medications: New atorvastatin (Lipitor) 40 mg PO BEDTIME 90 tabs 3RF 90 days
--- OUTSIDE RECORDS SUMMARY | 2025-03-13 20:05 | XMS_ITS | Patient Health Record ---
Author Organization [facility] Address [address] [place] [id number] Care Team Providers Care Compound Machine Operator Name Role Phone Rene Johnston Unavailable [phone] Reason For Referral No Information Plan Of Treatment No Information
== END 2025-03-13 14:37 | disposition home or self-care (01) ==
LOC: HO.HMCFM 13:53
PROVIDERS: PCP Family Medicine; Visit Provider Family Medicine
DX: E78.00 Pure hypercholesterolemia, unspecified (principal); R73.01 Impaired fasting glucose; R74.01 Elevation of levels of liver transaminase levels; E80.6 Other disorders of bilirubin metabolism; Z13.9 Encounter for screening, unspecified

== ENCOUNTER → 2025-03-13 13:52 | Outpatient (BNVA) | payer OTHER, SELFPAY | PROVIDERS: PCP Nurse Practitioner Family; Visit Provider Family Medicine | DX: R73.01 Impaired fasting glucose (principal); R74.01 Elevation of levels of liver transaminase levels; E78.00 Pure hypercholesterolemia, unspecified; E80.6 Other disorders of bilirubin metabolism | CPT/HCPCS: 83036; 96127 ==